=== PATIENT | female | born 1960 | race Caucasian/White ===

== ENCOUNTER 2017-02-22 07:08 | Day surgery (SDC) | payer BC, OTHER ==
[~2017-02-22] VITALS: Ht 175.3 cm; Wt 127.0 kg
[2017-02-22 09:50] VITALS: Ht 175.3 cm; Wt 127.0 kg
[2017-02-22] MEDS ORDERED: ASPI81TA3 PO (10:20)
[2017-02-22] MEDS ORDERED: TOPROL (10:22)
[2017-02-22] MEDS ORDERED: AMLO-145 PO (10:22)
[2017-02-22] MEDS ORDERED: LOSARTAN DAILY (10:22)
[2017-02-22] MEDS ORDERED: LIDOCAINE 2% (SDV) 5 ML INJ ONE (10:32)
[2017-02-22] MEDS ORDERED: PROPOFOL 40 ML ONE (10:32)
[2017-02-22] MEDS ORDERED: MIDAZOLAM 1 MG/ML 2 ML INJ ONE (10:33)
[2017-02-22 10:39] VITALS: BP 137/86; PULSE 85; RESP 18
--- NOTE | 2017-02-22 10:58 | OPPN ---
Date/Time of Note Date/Time of Note DATE: 02/22/17 TIME: 10:57 Operative Report Preoperative Diagnosis Rectal bleeding Change in bowel habit Postoperative Diagnosis Diverticulosis of the colon Internal hemorrhoids Operation/Procedure Performed Colonoscopy Provider: CHERISE FENG MD Anesthesia Type: MAC Estimated blood loss: none Transfusion Required: no Specimen: none Grafts/Implants: none Complications: no CHERISE FENG MD Feb 22, 2017 10:58
[2017-02-22 11:35] VITALS: BP 130/58; RESP 14
--- NOTE | 2017-02-22 11:47 | GILP ---
DATE OF PROCEDURE: 02/22/2017 PREOPERATIVE DIAGNOSES: 1. Rectal bleeding. 2. Change in bowel habits. POSTOPERATIVE DIAGNOSES: 1. Colonoscopy all the way to the cecum. 2. Diverticulosis of the colon. 3. Internal hemorrhoids. 4. No colon neoplasm was identified. PROCEDURE PERFORMED: Colonoscopy. SURGEON: Octavio Head MD INDICATION: Ms. Nila Truong is a 57-year-old female patient who had rectal bleeding and change in bowel habits. The patient was scheduled for colonoscopy for further evaluation. The procedure and possible complications were well explained to the patient. She understood and consented to the procedure. DESCRIPTION OF PROCEDURE: Under influence of anesthesia, the colonoscope was carefully introduced into the rectum. Under direct vision, it was advanced all the way to the cecum. FINDINGS: The patient had diverticulosis of the colon. She also had internal hemorrhoids. No colon neoplasm was identified. She tolerated the procedure very well. There was no complication from the procedure. At the end of procedure, she was awake with stable vital signs and she was discharged home in the care of her family. IMPRESSION: Please see postop diagnoses. PLAN: 1. Anusol HC 2.5 percent cream q.h.s. p.r.n. 2. Next screening colonoscopy in 10 years. Dictated By: MD RAYSHAWN Whitten/stu/lisa /Document#: [id number]
== END 2017-02-22 12:01 | disposition home or self-care (01) ==
LOC: GIL 07:08
PROVIDERS: ATTEND Internal Medicine Gastroenterology
DX: R19.4 Change in bowel habit (principal); K57.90 Diverticulosis of intestine, part unspecified, without perforation or abscess without bleeding; K64.8 Other hemorrhoids; I10 Essential (primary) hypertension; E11.9 Type 2 diabetes mellitus without complications; F41.9 Anxiety disorder, unspecified; E66.9 Obesity, unspecified; Z68.41 Body mass index [BMI] 40.0-44.9, adult
CPT/HCPCS: 45378; 82962; J2250